=== PATIENT | female | born 2000 | race Caucasian/White ===

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

== ENCOUNTER 2020-05-03 21:43 | Emergency (ER) | payer OTHER ==
[~2020-05-03] VITALS: Ht 149.9 cm; Wt 64.4 kg
[2020-05-03 21:58] VITALS: BP 132/71; Ht 149.9 cm; Wt 64.4 kg
== END 2020-05-03 23:50 | disposition home or self-care (01) ==
LOC: ED 21:43
DX: R51.9 Headache, unspecified (principal); V49.49XA Driver injured in collision with other motor vehicles in traffic accident, initial encounter; Y93.I9 Activity, other involving external motion; Y92.413 State road as the place of occurrence of the external cause; Y99.8 Other external cause status